=== PATIENT | female | born 1990 | race Caucasian/White ===

== ENCOUNTER → 2018-04-24 | Outpatient (CLI) | payer BC ==
--- NOTE | 2018-04-24 13:50 | XR ---
EXAMINATION TYPE: XR chest 2V DATE OF EXAM: 04/24/2018 COMPARISON: NONE HISTORY: Cough and dyspnea TECHNIQUE: Frontal and lateral views of the chest are obtained. FINDINGS: There is no focal air space opacity, pleural effusion, or pneumothorax seen. The cardiac silhouette size is within normal limits. There is a slight spinal curvature in the thoracic spine. T he osseous structures are intact. There is bronchial wall thickening. IMPRESSION: Correlate for bronchitis, reactive airways disease, follow-up as indicated.
== END | disposition home or self-care (01) ==
LOC: RADXRMAIN 12:11
PROVIDERS: ATTEND Physician Assistant
DX: R07.9 Chest pain, unspecified (principal); R05 Cough; R06.00 Dyspnea, unspecified
CPT/HCPCS: 71046

== ENCOUNTER → 2021-03-09 | Outpatient (CLI) | payer BC | END | disposition home or self-care (01) | LOC: LABWHC1 11:32 | PROVIDERS: ATTEND Specialist/Technologist Athletic Trainer | DX: Z20.822 Contact with and (suspected) exposure to COVID-19 (principal) | CPT/HCPCS: 87635 ==

== ENCOUNTER 2022-09-24 07:46 | Emergency (ER) | payer BC, OTHER ==
[2022-09-24 08:02] VITALS: PULSE 123; RESP 18; TEMP 98.3
--- NOTE | 2022-09-24 08:04 | ED ---
General Adult HPI - General Stated complaint: Bilateral Leg Numbness Time Seen by Provider: 09/24/22 07:48 - History of Present Illness Initial comments: Dictation was produced using [employer] dictation software. please excuse any grammatical, word or spelling errors. Chief Complaint: 31 y old female presents with worsening lower extremity paresthesias History of Present Illness: Patient is a 31-year-old female presents emergency department with worsening lower extremity paresthesias. Patient states that her symptoms began approximately 2 weeks ago. She did note that she did some heavy lifting style exercises which she has not done in several months. Patient states that couple days after she began having left sciatica symptoms after having a long drive. She is initially began as which she describes was left- sided lower back pain radiating down the legs. Shortly after there was involvement of the right leg. She states that her symptoms have been persistent and ongoing for the last several days. Recently she began to notice symptoms in the saddle area. She did see her primary care doctor ordered an x-ray with intentions of ordering MRI to be performed as an outpatient however given patient's progressive symptoms she sought medical attention. Denies any fevers. States that her back pain still noticeable although very minimal. Denies any visual changes. No paresthesias above the waist. Started to noted weakness in the lower legs. The ROS documented in this emergency department record has been reviewed and confirmed by me. Those systems with pertinent positive or negative responses have been documented in the HPI. All other systems are other negative and/or noncontributory. - Related Data Allergies Allergy/AdvReac Type Severity Reaction Status Date / Time No Known Allergies Allergy Verified 09/24/22 08:02 Review of Systems ROS Statement: Those systems with pertinent positive or pertinent negative responses have been documented in the HPI. ROS Other: All systems not noted in ROS Statement are negative. General Exam - General Exam Comments Initial Comments: PHYSICAL EXAM: General Impression: Alert and oriented x3, not in acute distress HEENT: Normocephalic atraumatic, extra-ocular movements intact, pupils equal and reactive to light bilaterally, mucous membranes moist. Cardiovascular: Heart regular rate and rhythm Chest: Able to complete full sentences, no retractions, no tachypnea Abdomen: abdomen soft, non-tender, non-distended, no organomegaly Musculoskeletal: Pulses present and equal in all extremities, no peripheral edema Motor: no focal deficits noted Neurological: CN II-XII grossly intact, reported paresthesias to light touch of the lower extremities circumferentially from the bilateral hips down to the ankles. She does report diminished sensation to light touch of the saddle area Skin: Intact with no visualized rashes Psych: Normal affect and mood Course Vital Signs 09/24/22 07:57 Temperature 98.3 F Pulse Rate 123 H Respiratory 18 Rate Blood Pressure 160/102 O2 Sat by Pulse 97 Oximetry Medical Decision Making - Medical Decision Making Was pt. sent in by a medical professional or institution (, PA, FINANCIAL OPERATIONS CLERK, urgent care, hospital, or correction...) When possible be specific @ -No Did you speak to anyone other than the patient for history (EMS, parent, family, police, friend...)? What history was obtained from this source @ -No Did you review nursing and triage notes (agree or disagree)? Why? @ -I reviewed and agree with nursing and triage notes Were old charts reviewed (outside hosp., previous admission, EMS record, old EKG, old radiological studies, urgent care reports/EKG's, correction records)? Report findings @ -No old charts were reviewed Differential Diagnosis (chest pain, altered mental status, abdominal pain women, abdominal pain men, vaginal bleeding, musculoskeletal, weakness, fever, dyspnea, syncope, headache, dizziness, GI bleed, back pain, seizure, CVA, palpatations, mental health)? @ -Differential Back Pain: Strain, zoster, cauda equina syndrome, epidural abscess, vertebral osteomyelitis, discitis, fracture, subluxation, disc herniation, DJD, spinal stenosis, dissection, AAA, pancreatitis, peptic ulcer disease, pyelonephritis, kidney stone, this is not meant to be an all-inclusive list. EKG interpreted by me (3pts min.). @ -None done X-rays interpreted by me (1pt min.). @ -None done CT interpreted by me (1pt min.). @ -None done U/S interpreted by me (1pt. min.). @ -None done What testing was considered but not performed or refused? (CT, X-rays, U/S, labs)? Why? @ -None What meds were considered but not given or refused? Why? @ -None Did you discuss the management of the patient with other professionals (professionals i.e. , PA, FINANCIAL OPERATIONS CLERK, lab, RT, psych nurse, social insurance administrator, dairy equipment mechanic, teacher, security officer, correctional counselor/case manager)? Give summary @ -No Was smoking cessation discussed for >3mins.? @ -No Was critical care preformed (if so, how long)? @ -No Were there social determinants of health that impacted care today? How? (Homelessness, low income, unemployed, alcoholism, drug addiction, transportation, low edu. Level, literacy, decrease access to med. care, nursing home, rehab)? @ -No Was there de-escalation of care discussed even if they declined (Discuss DNR or withdrawal of care, Hospice)? DNR status @ -No What co-morbidities impacted this encounter? (DM, HTN, Smoking, COPD, CAD, Cancer, CVA, ARF, Chemo, Hep., AIDS, mental health diagnosis, sleep apnea, morbid obesity)? @ -None Was patient admitted / discharged? Hospital course, mention meds given and route, prescriptions, significant lab abnormalities, going to OR and other pertinent info. @ -31 y Old female presents emergency Department with progressive lower extremity sensory deficits. She has been having progressive symptoms for the last 2 weeks. Laboratory evaluation obtained. CBC metabolic panel is unremarkable. Electrolytes are normal. MRI was ordered showing degenerative disc. Posterior disc bulge with annular tear at L4 5 with mild left foraminal encroachment. Patient reevaluated at bedside patient is ambulatory with minimal complications. The patient's symptoms likely secondary to nerve irritation at the lower lumbar levels Undiagnosed new problem with uncertain prognosis? @ -No Drug Therapy requiring intensive monitoring for toxicity (Heparin, Nitro, In sulin, Cardizem)? @ -No Were any procedures done? @ -No Diagnosis/symptom? Acute, or Chronic, or Acute on Chronic? Uncomplicated (without systemic symptoms) or Complicated (systemic symptoms)? @ -1. Acute back pain Side effects of treatment? @ -No Exacerbation, Progression, or Severe Exacerbation? @ -No Poses a threat to life or bodily function? How? (Chest pain, USA, CT, pneumonia, PE, COPD, DKA, ARF, appy, cholecystitis, CVA, Diverticulitis, Homicidal, Suicidal, threat to staff... and all critical care pts) @ -No - Lab Data Result diagrams: 09/24/22 08:57 09/24/22 08:57 Lab Results 09/24/22 09/24/22 Range/Units 08:57 08:57 WBC 8.8 (3.8-10.6) k/uL RBC 4.56 (3.80-5.40) m/uL Hgb 15.3 (11.4-16.0) gm/dL Hct 44.5 (34.0-46.0) % MCV 97.6 (80.0-100.0) fL MCH 33.6 (25.0-35.0) pg MCHC 34.4 (31.0-37.0) g/dL RDW 11.9 (11.5-15.5) % Plt Count 327 (150-450) k/uL MPV 7.2 Neutrophils % 66 % Lymphocytes % 26 % Monocytes % 6 % Eosinophils % 1 % Basophils % 0 % Neutrophils # 5.8 (1.3-7.7) k/uL Lymphocytes # 2.3 (1.0-4.8) k/uL Monocytes # 0.5 (0-1.0) k/uL Eosinophils # 0.1 (0-0.7) k/uL Basophils # 0.0 (0-0.2) k/uL Sodium 139 (137-145) mmol/L Potassium 4.1 (3.5-5.1) mmol/L Chloride 106 (98-107) mmol/L Carbon Dioxide 24 (22-30) mmol/L Anion Gap 9 mmol/L BUN 12 (7-17) mg/dL Creatinine 0.73 (0.52-1.04) mg/dL Est GFR (CKD-EPI)AfAm >90 (>60 ml/min/1.73 sqM) Est GFR (CKD-EPI)NonAf >90 (>60 ml/min/1.73 sqM) Glucose 108 H (74-99) mg/dL Calcium 9.4 (8.4-10.2) mg/dL Magnesium 2.0 (1.6-2.3) mg/dL Disposition Clinical Impression: Bulging discs Disposition: HOME SELF-CARE Condition: Fair Instructions (If sedation given, give patient instructions): Back Pain (ED) Is patient prescribed a controlled substance at d/c from ED?: No Referrals: Nonstaff,Physician [Primary Care Provider] - 1-2 days Time of Disposition: 09:22
[2022-09-24 08:16] VITALS: BP 160/102
--- NOTE | 2022-09-24 08:58 | MR ---
EXAMINATION TYPE: MR lumbar spine wo con DATE OF EXAM: 09/24/2022 8:48 AM COMPARISON: NONE HISTORY: Saddle anesthesia lower extremities Multiplanar, MultiSpin echo imaging of the lumbar spine was performed. L1-L2: Normal disc appearance without desiccation. No herniation, protrusion or disc bulging. No ca nal stenosis is present. Foramina are patent bilaterally. L2-L3: Normal disc appearance without desiccation. No herniation, protrusion or disc bulging. No ca nal stenosis is present. Foramina are patent bilaterally. L3-L4: Normal disc appearance without desiccation. No herniation, protrusion or disc bulging. No ca nal stenosis is present. Foramina are patent bilaterally. L4-L5: Mild to moderate decreased signal and loss of height compatible degenerative disc disease. Pos terior disc bulge with annular tear effaces the ventral thecal sac. There is no evidence for lateral recess stenosis or central stenosis. Borderline to mild left neural foraminal encroachment. L5-S1: Moderate disc desiccation. Posterocentral disc bulge with small protrusion difficult to exclud e. There is mild right neural foraminal encroachment. No central stenosis identified. Lumbar segments are intact. No paraspinal masses are identified. Conus medullaris has a normal appe arance. IMPRESSION: 1. Degenerative disc disease as discussed. 2. Posterior disc bulge with annular tear L4-5. Mild left foraminal encroachment. 3. Posterocentral disc bulge with small protrusion difficult to exclude L5-S1. Mild right neural fora tomy encroachment.
[2022-09-24 09:03] LABS: Basophils % (A) 0 %; Eosinophils # (A) 0.1 k/uL (0-0.7); Eosinophils % (A) 1 %; HCT 44.5 % (34.0-46.0); HGB 15.3 gm/dL (11.4-16.0); Lymphocytes # (A) 2.3 k/uL (1.0-4.8); Lymphocytes % (A) 26 %; MCH 33.6 pg (25.0-35.0); MCHC 34.4 g/dL (31.0-37.0); MCV 97.6 fL (80.0-100.0); Mean Platelet Volume 7.2; Monocytes # (A) 0.5 k/uL (0-1.0); Monocytes % (A) 6 %; Neutrophils # (A) 5.8 k/uL (1.3-7.7); Neutrophils % (A) 66 %; Platelet Count 327 k/uL (150-450); RBC 4.56 m/uL (3.80-5.40); RDW 11.9 % (11.5-15.5); WBC 8.8 k/uL (3.8-10.6)
[2022-09-24 09:14] LABS: African American GFR (CKD) >90 (>60 ml/min/1.73 sqM); Anion Gap 9 mmol/L; Blood Urea Nitrogen 12 mg/dL (7-17); Calcium 9.4 mg/dL (8.4-10.2); Carbon Dioxide 24 mmol/L (22-30); Chloride 106 mmol/L (98-107); Glucose 108 mg/dL (74-99); Non-African American GFR(CKD) >90 (>60 ml/min/1.73 sqM); Potassium 4.1 mmol/L (3.5-5.1); Sodium 139 mmol/L (137-145)
== END 2022-09-24 08:56 | disposition home or self-care (01) ==
LOC: EC 07:46
DX: M51.36 Other intervertebral disc degeneration, lumbar region (principal)
CPT/HCPCS: 36415; 72148; 80048; 83735; 85025; 99283